=== PATIENT | female | born 1975 | race Caucasian/White ===

== ENCOUNTER → 2016-04-18 | Outpatient (CLI) | payer OTHER ==
--- NOTE | 2016-04-18 14:15 | MR ---
EXAMINATION TYPE: MR cervical spine wo con DATE OF EXAM: 04/18/2016 1:58 PM COMPARISON: NONE HISTORY: radiculopathy csp, gonsales TECHNIQUE: Multiplanar, multisequence images of the cervical spine were acquired. C2-C3: No evidence for degenerative disc disease. No disc bulge/herniation or protrusion. No Canal stenosis. Foramina are patent bilaterally. C3-C4: No evidence for degenerative disc disease. No disc bulge/herniation or protrusion. No Canal stenosis. Foramina are patent bilaterally. C4-C5: No evidence for degenerative disc disease. No disc bulge/herniation or protrusion. No Canal stenosis. Foramina are patent bilaterally. C5-C6: Mild disc desiccation is noted. Large disc herniation noted with extrusion difficult to exclud e. Disc is noted paracentrally and to the right and measures 9.6 mm craniocaudal dimension by 5 mm AP dimension. There is evidence for cord contact and distortion as well as a moderate central stenosis. 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 There is mild right foraminal encroachment. C6-C7: Mild disc desiccation. Mild posterior central disc bulge without evidence for star herniation . No evidence for central stenosis or foraminal encroachment. C7-T1: No evidence for degenerative disc disease. No disc bulge/herniation or protrusion. No Canal stenosis. Foramina are patent bilaterally. Cervical segments are intact. There is normal alignment. Cervical spinal cord is of normal signal. Craniovertebral junction relationships are within normal limits. IMPRESSION: 1. Large disc herniation paracentrally and to the right at C5-6 with extrusion difficult to exclude. There is evidence for cord contact and distortion as well as resultant central stenosis and early com pressive myelopathy.
--- NOTE | 2016-04-18 14:18 | MR ---
EXAMINATION TYPE: MR shoulder RT wo con DATE OF EXAM: 04/18/2016 2:11 PM COMPARISON: NONE HISTORY: Pain in rt shoulder TECHNIQUE: Multiplanar multispin echo imaging of the right shoulder was performed. FINDINGS: Rotator cuff : Full thickness partial tear supraspinatus tendon near its humeral insertion measures 7 mm. Small amount of fluid is seen within the subacromial subdeltoid bursa. There is a heterogeneity of the supraspinatus tendon compatible with tendinopathy. Subscapularis and infraspinatus tendons are intact. Bursa: No bursal effusion or thickening is seen. Musculature: There is no muscular tear, contusion, or atrophy. Acromioclavicular joint : Moderate subacromial spurring resulting in impingement. Mild AC joint arthr opathy. Osseous structures : There are no fractures or regions of abnormal bone marrow signal intensity. Long biceps tendon : The biceps tendon is normally situated within the bicipital groove. No complete or partial biceps tendon tear is present. Glenohumeral Joint fluid : There is no glenohumeral joint effusion. Cartilage and Bone : No focal hyaline cartilage defects are noted. No Hill-Sachs, reverse Hill-Sachs, or bony Bankart lesions are seen. Labrum : There are no SLAP or soft tissue Bankart lesions. No paralabral cysts are seen. OTHER FINDINGS : none IMPRESSION: 1. Full thickness partial tear supraspinatus tendon superimposed upon tendinopathy secondary to impin gement.
== END | disposition home or self-care (01) ==
LOC: RADMRIMAIN 12:51
PROVIDERS: ATTEND Orthopaedic Surgery
DX: M50.222 Other cervical disc displacement at C5-C6 level (principal); G95.9 Disease of spinal cord, unspecified; M48.02 Spinal stenosis, cervical region
CPT/HCPCS: 72141

== ENCOUNTER → 2016-05-28 | Outpatient (CLI) | payer OTHER ==
--- NOTE | 2016-05-28 21:57 | MR ---
EXAMINATION TYPE: MR lumbar spine wo/w con DATE OF EXAM: 05/28/2016 6:07 PM COMPARISON: Correlation MRI 06/11/2013 HISTORY: 41-year-old female with prior surgery, currently having back pain and spasms, lumbar pain. TECHNIQUE: Multiplanar, multisequence images of the lumbar spine were obtained before and after admin istration of 11 mL intravenous MultiHance gadolinium contrast. FINDINGS: There is susceptibility artifact related to the patient's prior anterior lumbar interbody fusion at L 5-S1. There appears to be laminectomy changes at this level as well. Vertebral body heights are preserved and alignment is maintained. No suspicious bone marrow replacement. Mild disc bulging throughout the lumbar spine appears progressed from 06/11/2013. Minimal variable disc desiccation also appears progressed. Facet arthropathy mid to lower lumbar spine. Conus medullaris is normal. At T12-L1, there is minimal disc bulge without significant canal or foraminal stenosis. At L1-L2, there is minimal disc bulge without significant canal or foraminal stenosis. At L2-L3, there is increased mild diffuse disc bulge with superimposed central posterior broad-based disc protrusion. This impresses on the ventral thecal sac without significant spinal canal stenosis. No significant neuroforaminal stenosis. At L3-L4, there is diffuse disc bulge eccentric towards the right with ligamentum flavum thickening a nd facet arthropathy. Changes cause minimal inferior right neuroforaminal narrowing, increased from 2 014. Mild attenuation of the thecal sac without significant spinal canal stenosis. At L4-L5, there is diffuse disc bulge with ligamentum flavum thickening and facet degenerative change . Minimal inferior foraminal narrowing on the right and mild to moderate left neuroforaminal stenosis , both increased from prior. No significant spinal canal stenosis. At L5-S1, there is some susceptibility artifact extending into the ventral canal. There is dorsal dec ompression of the thecal sac without evident spinal canal or neuroforaminal stenosis. No prevertebral or paravertebral soft tissue abnormality. No suspicious enhancement within the spinal canal. IMPRESSION: 1. Status post L5-S1 ALIF. No suspicious perineural enhancing granulation tissue. 2. Multilevel early degenerative disc disease. Very mild disc bulges have progressed from 06/11/2013. O verall similar facet arthropathy and ligamentum flavum thickening. 3. Variable minimal inferior neural foraminal narrowing on the right at L3-L4 and L4-L5 is new from p rior as is mild to moderate neuroforaminal narrowing on the left at L4-L5. 4. No canal compromise.
== END ==
LOC: RADMRIMAIN 17:12
PROVIDERS: ATTEND Orthopaedic Surgery
DX: M99.73 Connective tissue and disc stenosis of intervertebral foramina of lumbar region (principal); M51.26 Other intervertebral disc displacement, lumbar region; M51.36 Other intervertebral disc degeneration, lumbar region; M46.86 Other specified inflammatory spondylopathies, lumbar region; M25.511 Pain in right shoulder; M50.120 Mid-cervical disc disorder, unspecified level
CPT/HCPCS: 72158; A9577

== ENCOUNTER → 2017-04-04 | Outpatient (CLI) | payer BC ==
--- NOTE | 2017-04-08 07:56 | MM ---
Reason for exam: screening (asymptomatic). Last mammogram was performed 4 years and 3 months ago. History: Family history of breast cancer in mother at age 53. Benign US RT VAD breast biopsy of the right breast, May 16, 2011. Benign right breast aspiration of the right breast, May 16, 2011. Took hormonal contraceptives for 1 year. Physical Findings: A clinical breast exam by your physician is recommended on an annual basis and results should be correlated with mammographic findings. MG Screening Mammo w CAD Bilateral CC and MLO view(s) were taken. Prior study comparison: August 05, 2015, mammogram. December 19, 2012, CAD bilateral diagnostic mammogram. November 16, 2011, right diagnostic mammogram w/CAD. The breast tissue is heterogeneously dense. This may lower the sensitivity of mammography. No significant changes when compared with prior studies. ASSESSMENT: Benign, BI-RAD 2 RECOMMENDATION: Routine screening mammogram of both breasts in 1 year.
== END | disposition home or self-care (01) ==
LOC: RADMAMWWP 13:29
PROVIDERS: ATTEND Internal Medicine
DX: Z12.31 Encounter for screening mammogram for malignant neoplasm of breast (principal)
CPT/HCPCS: 77067

== ENCOUNTER → 2017-04-18 | Outpatient (CLI) | payer BC ==
--- NOTE | 2017-04-18 11:42 | US ---
EXAM: Lower Extremity Venous Duplex for venous insufficiency DATE OF EXAM: 04/18/2017 11:17 AM COMPARISON: NONE CLINICAL HISTORY: I83.891 Varicose veins,Insufficiency of rt lower extremity. Right thigh swelling no dandre 8 weeks after cervical spine fusion 9 months ago; right lateral thigh pain since this neck proce dure. SIDE PERFORMED: LOWER EXTREMITY VENOUS INSUFFICIENCY SIDE PERFORMED: right 1) Color flow is present and patency is documented in the following vessels: Low-level internal echo es are noted within the popliteal vein however color flow and compressibility noted. Common Femoral Vein Deep Femoral Vein Femoral Vein Popliteal Vein Proximal Calf Veins Greater Saph Vein Upper Small Saph Vein 2) There is venous reflux noted at the following venous levels: 0 3) Incompetent perforators are noted at these levels: 0 IMPRESSION: Findings in the popliteal vein could represent residual from old deep venous thrombosis, no acute deep venous thrombosis is evident, follow-up as indicated. No evident venous insufficiency.
== END | disposition home or self-care (01) ==
LOC: RADUSWWP 10:24
DX: I83.891 Varicose veins of right lower extremity with other complications (principal); I87.2 Venous insufficiency (chronic) (peripheral)

== ENCOUNTER → 2017-06-25 | Outpatient (CLI) | payer BC ==
--- NOTE | 2017-06-25 15:44 | US ---
EXAMINATION TYPE: US venous doppler duplex LE LT DATE OF EXAM: 06/25/2017 3:21 PM COMPARISON: NONE CLINICAL HISTORY: M25.572 Lt Lower Ext, Pain and Swelling. Patient had left foot surgery in May, foot swelling SIDE PERFORMED: Left TECHNIQUE: The lower extremity deep venous system is examined utilizing real time linear array sonog saran with graded compression, doppler sonography and color-flow sonography. VESSELS IMAGED: External Iliac Vein (EIV) Common Femoral Vein Deep Femoral Vein Greater Saphenous Vein * Femoral Vein Popliteal Vein Small Saphenous Vein * Proximal Calf Veins (* superficial vessels) Grayscale, color doppler, spectral doppler imaging performed of the deep veins of the left lower extr emity. There is normal flow, compressibility, vascular waveforms. Left Leg: Negative for DVT IMPRESSION: No sonographic evidence of deep venous thrombosis within the left lower extremity.
== END | disposition home or self-care (01) ==
LOC: RADUSWWP 14:46
PROVIDERS: ATTEND Orthopaedic Surgery
DX: Z48.89 Encounter for other specified surgical aftercare (principal); I80.9 Phlebitis and thrombophlebitis of unspecified site; M25.572 Pain in left ankle and joints of left foot; M19.172 Post-traumatic osteoarthritis, left ankle and foot; M21.42 Flat foot [pes planus] (acquired), left foot; M76.822 Posterior tibial tendinitis, left leg

== ENCOUNTER → 2017-10-07 | Outpatient (CLI) | payer BC ==
--- NOTE | 2017-10-08 00:39 | MR ---
EXAMINATION TYPE: MR foot LT wo con DATE OF EXAM: 10/07/2017 COMPARISON: None HISTORY: Lt ankle/foot pain x 5 mos, prev surgery Standard multiplanar, multisequence MRI departmental protocol Multiplanar, multisequence images of the left foot were acquired. FINDINGS: There is soft tissue swelling of the forefoot. The metatarsals appear intact. I see no frac ture nor dislocation. There is no evidence of a soft tissue mass. There are minute effusions at the M P joints. IMPRESSION: Small joint effusions at the MP joints. This is consistent with mild nonspecific synovitis. No fracture seen. Soft tissue swelling of the forefoot.
--- NOTE | 2017-10-08 00:43 | MR ---
EXAMINATION TYPE: MR ankle LT wo con DATE OF EXAM: 10/07/2017 COMPARISON: None HISTORY: Lt ankle/foot pain x 5 mos, prev surgery Standard multiplanar, multisequence MRI departmental protocol Multiplanar, multisequence images of the left ankle were acquired. FINDINGS: Achilles tendon is intact. Plantar fascia appears intact. There is metal artifact from surg fabi at the medial malleolus. Ankle mortise is anatomic. There is minor spurring of the anterior and p osterior malleolus. There is mild increased signal in the dome of the talus on the T2 images. There i s mild narrowing of the ankle joint space. The medial and lateral flexor tendons of the ankle appear intact. Subtalar joint appears normal. The collateral ligaments appear intact. 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 Mild edema in the medial dome of the ta gail consistent with some reactive change or bone bruise. No fracture line seen. Previous surgery with metal artifact. No evidence of ligament or tendon tear.
== END | disposition home or self-care (01) ==
LOC: RADMRIMAIN 20:50
PROVIDERS: ATTEND Orthopaedic Surgery
DX: M19.072 Primary osteoarthritis, left ankle and foot (principal); M25.475 Effusion, left foot